=== PATIENT | female | born 2000 | race Two or more races ===

== ENCOUNTER 2024-02-17 23:33 | Emergency (ER) | payer MEDICAID, SELFPAY ==
[2024-02-17 23:33] VITALS: BMI 27.4
[2024-02-17 23:45] VITALS: BP 137/83; PULSE 67; RESP 18; TEMP 37; O2SAT 97
--- NOTE | 2024-02-18 00:13 | XR_ITS ---
Examination: Transvaginal ultrasound of the pelvis, complete Technique: Transvaginal sonographic images pelvis performed using bennett scale imaging Exam date and time: February 18, 2024 0107 hrs. Indications: Right lower abdomen and pelvic pain beginning 3 weeks ago, history ovarian cysts Findings: Uterus 8.2 x 3.0 x 4.3 cm Endometrial stripe 0.1 cm No uterine mass or intrauterine gestation Right ovary 1.7 x 2.0 x 1.6 arterial flow Left ovary ovary 2.7 x 1 6 x 2.0 cm arterial flow No fluid in the cul-de-sac Impression: Negative examination
--- NOTE | 2024-02-18 00:14 | XR_ITS ---
Examination: CT abdomen with intravenous contrast CT pelvis with intravenous contrast 2-D coronal reconstructions 2-D sagittal reconstructions Date and time of exam:February 18, 2024 0208 hrs. Comparison 11/07/2022 Indications: Right lower abdominal pain beginning 3 weeks ago with nausea vomiting. CTDI: vol (mGy) 6.20 DLP: (mGycm) 350 Technique: Multiple axial sections of the abdomen and pelvis have been obtained. 64 slice high-resolution scanner used. 3 mm axial sections have been obtained, post intravenous injection 60 cc [id number] 2-D sagittal, coronal reconstructions obtained. Low dose protocols were performed. One or more of the following dose reduction techniques were used; automated exposure control, adjustment of the mA and/or KV according to patient size, use of iterative reconstruction technique. Findings: No focal liver or splenic lesions No gallstones No pancreatic or adrenal mass No renal or ureteral calculi, no hydronephrosis Absent appendix No bowel obstruction or diverticulitis Anteverted uterus Bilateral ovarian follicular cysts Urinary bladder intact Osseous structures intact Impression: No acute process in the abdomen or pelvis
--- NOTE | 2024-02-18 00:15 | EDRME_ITS ---
Rapid Medical Screening Exam [facility] [place] Arrival date/time: 02/17/24 23:33 23F with history of appendectomy presents to ED with 3 weeks of RLQ/pelvic pain and non-bloody diarrhea every morning. Patient denies N/V, vaginal bleeding, and dysuria. Patient has also had reduced appetite. During appendectomy, surgeon did note patient had extensive pelvic/ab adhesions. Chief Complaint: Abdominal Pain Vital signs: Vital Signs Temperature 98.6 F 02/17/24 23:45 Pulse Rate 67 02/17/24 23:45 Respiratory Rate 18 02/17/24 23:45 Blood Pressure 137/83 H 02/17/24 23:45 Pulse Oximetry (%) 97 02/17/24 23:45 Oxygen Delivery Method Room Air 02/17/24 23:45
[2024-02-18 00:44] LABS: Collection Type, Urine Clean Catch; WBC,Urine 0 /hpf (0-5)
[2024-02-18 00:55] LABS: Basophils % (Auto) 0 % (0-2.5); Eosinophils # (Auto) 0.1 Thou/mm3 (0.0-0.5); Eosinophils % (Auto) 1 % (0-10); Hematocrit 35.2 % (36.0-46.0); Hemoglobin 11.3 g/dL (12.0-16.0); Immature Granulocytes % (Auto) 0 % (0-0); Immature Granulocytes Auto 0.02 Thou/mm3 (0.00-0.00); Lymphocytes # (Auto) 2.7 Thou/mm3 (1.0-4.8); Lymphocytes % (Auto) 40 % (10-50); Mean Corpuscular HGB Conc 32.1 g/dl (31.0-37.0); Mean Corpuscular Hemoglobin 24.2 pg (25.0-35.0); Mean Corpuscular Volume 75 fL (80-100); Monocytes # (Auto) 0.5 Thou/mm3 (0.0-0.8); Monocytes % (Auto) 8 % (0-12); Neutrophils # (Auto) 3.4 Thou/mm3 (1.8-7.7); Neutrophils % (Auto) 51 % (37-80); Nucleated Red Blood Cell % 0 /100 WBC (0); Platelet Count 151 Thou/mm3 (140-440); RDW Standard Deviation 41.6 fL (36.4-46.3); Red Blood Count 4.67 Miln/mm3 (4.00-5.20); White Blood Count 6.7 Thou/mm3 (3.6-11.0)
[2024-02-18 01:12] LABS: Alanine Aminotransferase 21 U/L (10-49); Albumin, Serum 4.8 gm/dL (3.5-5.0); Albumin/Globulin Ratio 1.7 (1.2-2.2); Alkaline Phosphatase 88 U/L (46-116); Anion Gap 8 (7-16); Aspartate Amino Transferase 14 U/L (0-34); BUN/Creatinine Ratio 23 Ratio (12-20); Bilirubin,Total 0.2 mg/dL (0.3-1.2); Blood Urea Nitrogen 14 mg/dL (9-23); Calcium 9.1 mg/dL (8.3-10.6); Calcium (Corrected) 9.1 mg/dL (8.5-10.1); Carbon Dioxide 25.3 mMol/L (20.0-31.0); Chloride 107 mMol/L (98-107); Creatinine (Component) 0.6 mg/dL (0.6-1.3); Estimated Creatinine Clearance 134.1 mL/min (>60); Globulin 2.8 gm/dL (2.3-3.5); Glucose 114 mg/dL (74-106); Lipase 32 U/L (12-53); Osmolality,Calculated 280 (275-295); Potassium 3.5 mMol/L (3.4-5.1); Sodium 140 mMol/L (136-145); Total Protein 7.6 gm/dL (5.7-8.2); eGFR > 60 See Note
[2024-02-18 01:23] LABS: Amphetamine/Methamp Scrn,U Negative (Negative); Bacteria,Urine Rare; Barbiturate Screen,Urine Negative (Negative); Benzodiazepines Screen,Urine Negative (Negative); Benzoylecgonine Screen, Ur Negative (Negative); Bilirubin,Urine Negative (Negative); Blood,Urine Trace (Negative); Clarity,Urine Clear (Clear/Hazy); Color,Urine Lt-Yellow (Lt Yel-Yel); Culture Indicated,Urine Not Indicated; Fentanyl Screen,Urine Negative (Negative); Glucose, Urine Negative (Negative); Ketones,Urine Negative (Negative); Leukocyte Esterase,Urine Negative (Negative); Nitrite,Urine Negative (Negative); Opiate Screen,Urine Negative (Negative); Protein,Urine Trace (Neg - Trace); RBC,Urine 5 /hpf (0-3); Specific Gravity,Urine 1.035 (1.001-1.035); Squamous Epithelial Cell,Urine 7 /hpf (0-5); THC Screen,Urine Negative (Negative); Urobilinogen,Urine Negative mg/dL (0.0-1.0)
[2024-02-18 01:24] LABS: HCG Qualitative,Urine Negative
--- NOTE | 2024-02-18 02:08 | PRELIM_ITS ---
Pelvic ultrasound (transvaginal) with doppler and wave doppler spectral analysis. February 18, 2024 a t 0107 hours Clinical history: Right pelvic pain 3 weeks. Technique: Real-time, grayscale, transvagin al pelvic ultrasound was performed using Duplex scanning including arterial inflow, venous outflow, c olor and spectral Doppler.Comparison: None available at the time of this report.Findings:The uterus i s normal in size measuring 8.2 x 3.2 x 4.3 cm. Heterogeneous uterus. The endometrium is unremarkable and measures 0.1 cm.The right ovary measures 1.7 x 2.0 x 1.6 cm and is unremarkable.The left ovary me asures 2.7 x 1.6 x 2.0 cm and is unremarkable.Both ovaries demonstrate color flow and spectral wavefo doron on Doppler evaluation.There is no adnexal mass.There is no free fluid on the submitted images.Imp ression:Heterogeneous uterus, consider correlation with MRI if clinically indicated.No evidence of ov magen torsion. Report Electronically Signed By: Davi Campos 02/18/2024 2:08:22 AM [EST]
--- NOTE | 2024-02-18 03:08 | PRELIM_ITS ---
CT scan of the abdomen and pelvis with intravenous contrast (axial sections with sagittal and coronal reformats) February 18, 2024 at 0208 hoursClinical History: RLQ/pelvic pain 3 weeks.Comparison: Ultr asound dated February 18, 2024.Findings:The lung bases are clear.The liver, gallbladder, pancreas, sp sadie, kidneys and adrenals are unremarkable.No evidence of bowel obstruction. The appendix is surgica lly absent.The uterus and ovaries are within normal limits.There is no mesenteric or retroperitoneal adenopathy.The urinary bladder is unremarkable. There is no free fluid or free air.The osseous struct ures are unremarkable.Fecal loading.Impression:No evidence of acute intra-abdominal or pelvic patholo gy.Fecal loading. Report Electronically Signed By: Davi Campos 02/18/2024 3:07:16 AM [EST]
--- NOTE | 2024-02-18 03:27 | PD.EDABDPN ---
ED Abdominal Pain RME/HPI General Chief Complaint: Abdominal Pain Stated complaint: RLQ PAIN X 3 WEEKS Arrival date/time: 02/17/24 23:33 RME / HPI RME / HPI narrative: 02/17/24 23:33 23F with history of appendectomy presents to ED with 3 weeks of RLQ/pelvic pain and non-bloody diarrhea every morning. Patient denies N/V, vaginal bleeding, and dysuria. Patient has also had reduced appetite. During appendectomy, surgeon did note patient had extensive pelvic/ab adhesions. Related Data Previous Rx's ?Medication ?Instructions ?Recorded ibuprofen 600 mg tablet 600 mg PO Q8H PRN pain #20 tabs 11/08/22 sulfamethoxazole 800 1 tab PO Q12H #14 tabs 11/08/22 mg-trimethoprim 160 mg tablet Allergies Allergy/AdvReac Type Severity Reaction Status Date / Time No Known Allergies Allergy Verified 02/17/24 23:36 Course Quality Measures none Orders Category Date Time Status CT Screening NOW Care 02/18/24 00:14 Active Insert IV NOW Care 02/18/24 00:[address] abdomen pelvis w con Stat Exams 02/18/24 00:14 Taken US transvaginal Stat Exams 02/18/24 00:13 Taken CBC Stat Lab 02/18/24 00:30 Completed CMP [Comprehensive Metabolic Panel] Stat Lab 02/18/24 00:30 Completed Drug Screen,Urine Stat Lab 02/18/24 00:30 Completed HCG Qualitative,Urine Stat Lab 02/18/24 00:30 Completed Lipase Stat Lab 02/18/24 00:30 Completed Urinalysis, C/S if Indicated Stat Lab 02/18/24 00:30 Completed Vital Signs Vital signs: Vital Signs Temperature 98.6 F 02/17/24 23:45 Pulse Rate 67 02/17/24 23:45 Respiratory Rate 18 02/17/24 23:45 Blood Pressure 137/83 H 02/17/24 23:45 Pulse Oximetry (%) 97 02/17/24 23:45 Oxygen Delivery Method Room Air 02/17/24 23:45 Abdominal Pain MDM Patient data External records reviewed:: Other (specify) Clinical information provided by:: patient Social determinants that could affect healthcare access:: none Patient has the following chronic illnesses:: none How is presenting disease/condition affected by chronic disease/condition?: no chronic disease Evaluation data The following diagnostics were reviewed and interpreted by me:: lab results Discharge Plan Prescriptions/Referrals Prescriptions/Med Rec: No Action ibuprofen 600 mg tablet 600 mg PO Q8H PRN (Reason: pain) Qty: 20 0RF sulfamethoxazole-trimethoprim 800-160 mg tablet 1 tab PO Q12H Qty: 14 0RF Referrals: Stephen Butcher FNP [Primary Care Provider] - In 1 week Patient/Caregiver Discharge Instructions Print Language: Vincentian
--- NOTE | 2024-02-18 04:55 | PD.EDABDPN ---
ED Abdominal Pain RME/HPI General Chief Complaint: Abdominal Pain Stated complaint: RLQ PAIN X 3 WEEKS Arrival date/time: 02/17/24 23:33 Limitations: no limitations RME / HPI RME / HPI narrative: 02/17/24 23:33 23F with history of appendectomy presents to ED with 3 weeks of RLQ/pelvic pain and non-bloody diarrhea every morning. Patient denies N/V, vaginal bleeding, and dysuria. Patient has also had reduced appetite. During appendectomy, surgeon did note patient had extensive pelvic/ab adhesions. ------ Dr. Lee's Main ED Evaluation: 23yo female with a previous appendectomy presents to the ED for a chief complaint of RLQ pain x 3 weeks. Patient states her pain is intermittent, but reports it significantly worsened over the last 1 day and has had diarrhea, so she came in for evaluation. She states she took ibuprofen without any alleviation of symptoms. She reports associated decreased appetite. She denies any N/V, fever, chills, vaginal bleeding or any other associated symptoms. NKA. Related Data Previous Rx's ?Medication ?Instructions ?Recorded ibuprofen 600 mg tablet 600 mg PO Q8H PRN pain #20 tabs 11/08/22 sulfamethoxazole 800 1 tab PO Q12H #14 tabs 11/08/22 mg-trimethoprim 160 mg tablet Allergies Allergy/AdvReac Type Severity Reaction Status Date / Time No Known Allergies Allergy Verified 02/17/24 23:36 Review of Systems Review of Systems Systems Reviewed: All systems reviewed, normal except as documented Past Medical History Past Medical History NEUROLOGIC: Negative Seizures CARDIAC: Negative Cardiac Disorders or Congestive Heart Failure RESPIRATORY: Negative Chronic Obstructive Pulmonary Disease (COPD) or Asthma GENITOURINARY: Negative Renal Disease ENDOCRINE: Negative Diabetes Mellitus Type 1 or Diabetes Mellitus Type 2 HEMATOLOGIC: Negative Sickle Cell Disease OTHER HISTORY: Negative Blood Transfusions, Blood Transfusion Reaction or Anesthesia Reactions Social History SMOKING STATUS: Never smoker ED Exam General Limitations: Present no limitations General appearance: Present alert and in no apparent distress Head Head exam: Present atraumatic Eye Eye exam: Present normal appearance, PERRL and EOMI ENT ENT exam: Present normal exam, normal oropharynx and mucous membranes moist Neck Neck exam: Present normal inspection, full ROM and trachea midline Chest Chest inspection: Present normal inspection and symmetric chest wall rise Respiratory Respiratory exam: Present normal lung sounds bilaterally Cardiovascular Cardiovascular exam: Present regular rate, normal rhythm and normal heart sounds Abdominal Exam Abdominal exam: Present soft and normal bowel sounds; Absent rebound Extremities Exam Extremities exam: Present normal inspection and full ROM Back Exam Back exam: Present normal inspection and full ROM; Absent CVA tenderness (R) or CVA tenderness (L) Neurological Exam Neurological exam: Present alert, oriented X3 and CN II-XII intact Psychiatric Psychiatric exam: Present normal affect and normal mood Skin Skin exam: Present warm, dry, intact and normal color Course Quality Measures none Orders Category Date Time Status CT Screening NOW Care 02/18/24 00:14 Active Insert IV NOW Care 02/18/24 00:[address] abdomen pelvis w con Stat Exams 02/18/24 00:14 Taken US transvaginal Stat Exams 02/18/24 00:13 Taken CBC Stat Lab 02/18/24 00:30 Completed CMP [Comprehensive Metabolic Panel] Stat Lab 02/18/24 00:30 Completed Drug Screen,Urine Stat Lab 02/18/24 00:30 Completed HCG Qualitative,Urine Stat Lab 02/18/24 00:30 Completed Lipase Stat Lab 02/18/24 00:30 Completed Urinalysis, C/S if Indicated Stat Lab 02/18/24 00:30 Completed Ketorolac Inj [Toradol Inj] Med 02/18/24 04:58 Discontinued 30 mg IVP X1 ONE Vital Signs Vital signs: Vital Signs Temperature 98.6 F 02/17/24 23:45 Pulse Rate 67 02/17/24 23:45 Respiratory Rate 18 02/17/24 23:45 Blood Pressure 137/83 H 02/17/24 23:45 Pulse Oximetry (%) 97 02/17/24 23:45 Oxygen Delivery Method Room Air 02/17/24 23:45 Pulse ox is 97% on room air, which is normal according to my interpretation. Abdominal Pain MDM Patient data External records reviewed:: [facility] previous records (Per chart review, patient was seen here on 11/07/22 for abdominal pain.) Clinical information provided by:: patient Social determinants that could affect healthcare access:: none Patient has the following chronic illnesses:: none How is presenting disease/condition affected by chronic disease/condition?: no chronic disease Evaluation data The following diagnostics were reviewed and interpreted by me:: lab results and radiology exam(s) Lab and/or radiology exams considered but not ordered:: none Interpretation Summary: I have personally reviewed the radiology data and agree with the radiologist's interpretation below: [facility] Preliminary Report Draft Patient: YULISA GALEAS Record#: [id number] Birthdate: 2000 Age/Sex: 23 / F Location: [facility] Attending Dr: Ordering Physician: Date of Service: Procedure(s): Accession Number(s): cc: ~ Pelvic ultrasound (transvaginal) with doppler and wave doppler spectral analysis. February 18, 2024 at 0107 hours Clinical history: Right pelvic pain 3 weeks. Technique: Real-time, grayscale, transvaginal pelvic ultrasound was performed using Duplex scanning including arterial inflow, venous outflow, color and spectral Doppler. Comparison: None available at the time of this report. Findings: The uterus is normal in size measuring 8.2 x 3.2 x 4.3 cm. Heterogeneous uterus. The endometrium is unremarkable and measures 0.1 cm. The right ovary measures 1.7 x 2.0 x 1.6 cm and is unremarkable. The left ovary measures 2.7 x 1.6 x 2.0 cm and is unremarkable. Both ovaries demonstrate color flow and spectral waveforms on Doppler evaluation. There is no adnexal mass. There is no free fluid on the submitted images. Impression: Heterogeneous uterus, consider correlation with MRI if clinically indicated. No evidence of ovarian torsion. Report Electronically Signed By: Davi Campos 02/18/2024 2:08:22 AM [EST] [facility] Preliminary Report Draft Patient: YULISA GALEAS. Record#: [id number] Birthdate: 2000 Age/Sex: 23 / F Location: [facility] Attending Dr: Ordering Physician: Date of Service: Procedure(s): Accession Number(s): cc: ~ CT scan of the abdomen and pelvis with intravenous contrast (axial sections with sagittal and coronal reformats) February 18, 2024 at 0208 hours Clinical History: RLQ/pelvic pain 3 weeks. Comparison: Ultrasound dated February 18, 2024. Findings: The lung bases are clear. The liver, gallbladder, pancreas, spleen, kidneys and adrenals are unremarkable. No evidence of bowel obstruction. The appendix is surgically absent. The uterus and ovaries are within normal limits. There is no mesenteric or retroperitoneal adenopathy. The urinary bladder is unremarkable. There is no free fluid or free air. The osseous structures are unremarkable. Fecal loading. Impression: No evidence of acute intra-abdominal or pelvic pathology. Fecal loading. Report Electronically Signed By: Davibella Campos 02/18/2024 3:07:16 AM [EST] Medications / Prescriptions Medications or Prescriptions considered but not ordered:: none Medication administrations:: Medication Administration History Discontinued Medications Ketorolac Tromethamine (Ketorolac Inj 30 Mg/Ml Vial) 30 mg IVP X1 ONE Stop: 02/18/24 04:59 see above Consultations Consultation(s) initiated? (list below): No Diagnosis Differential diagnosis abdominal pain: other (UTI, ruptured cyst, pyelonephritis, gallstones) Most likely diagnosis given after review of the tests above:: see below Admission Indicated Admission indicated?: not indicated Admission Request Was there a request for admission?: No Disposition Plan Disposition Plan: Discharge Discharge Attestation Discharge Attestation: The patient and all family members were given an opportunity to ask questions and understood the discharge instructions. Discharge instructions specifically effects, indications for sooner follow up or return to the emergency department, and the expected course of current diagnosis. Patient condition: Stable Discharge Plan Plan Patient Disposition: HOME (Self Care) Patient condition on transfer: Stable Prescriptions/Referrals Prescriptions/Med Rec: No Action ibuprofen 600 mg tablet 600 mg PO Q8H PRN (Reason: pain) Qty: 20 0RF sulfamethoxazole-trimethoprim 800-160 mg tablet 1 tab PO Q12H Qty: 14 0RF Referrals: Stephen Butcher FNP [Primary Care Provider] - In 1 week Problem List Clinical Impression: Abdominal pain in female patient Patient/Caregiver Discharge Instructions Education Materials: Measuring Your Pain Print Language: Haitian Stand Alone Forms: Layla Award Info., Patient Portal Info Letter
[2024-02-18 05:00] VITALS: BP 115/75; PULSE 67; RESP 18; TEMP 36.6; O2SAT 99
[2024-02-18] MEDS: KETOROLAC INJ 30 MG/ML VIAL IVP (05:17)
== END 2024-02-18 05:17 | disposition home or self-care (01) ==
PROVIDERS: Physician Assistant; Emergency Provider Emergency Medicine; PCP Nurse Practitioner Family
DX: R10.31 Right lower quadrant pain (principal); R10.2 Pelvic and perineal pain
CPT/HCPCS: 36415; 74177; 76830; 80053; 80307; 81001; 81025; 83690; 85025; 96374; 99285; A4649; J1885; Q9967

== ENCOUNTER → 2025-01-30 | Outpatient (CLI) | payer MEDICAID, SELFPAY ==
--- NOTE | 2025-01-30 13:30 | XR_ITS ---
Examination: Abdomen sonogram, complete Date and time of exam: January 30, 2025, 1342 hours INDICATIONS: Right lower abdominal pain beginning 1 month ago. Technique: Multiple real-time grayscale transabdominal sonographic images of the abdomen have been obtained. Findings: Normal gallbladder Normal common bile duct 0.3 cm Pancreatic head 2.1 cm Aorta not enlarged Liver 13.8 cm fatty infiltration Normal hepatopetal portal venous close Patent IVC Right kidney 10.1 cm renal cortex 1.4 cm Left kidney 9.8 cm renal cortex 2.3 cm Mild renal scar formation Spleen 11.3 cm IMPRESSION: Normal gallbladder Normal common bile duct
--- NOTE | 2025-01-30 13:30 | XR_ITS ---
Examination: Pelvic ultrasound, transabdominal, complete Technique: Transabdominal ultrasound of the pelvis performed using grayscale imaging Date and time of exam: January 30, 2025, 1333 hours INDICATIONS: Vaginal pain radiating to the pelvis 1 month FINDINGS: Uterus 7.4 cm no uterine mass or intrauterine gestation Endometrial stripe 0.4 cm Right ovary 2.2 cm arterial flow Right ovarian cyst 1.9 x 1.0 x 1.7 cm Left ovary 2.6 cm arterial flow IMPRESSION: Small right ovarian cyst 19 x 10 x 17 mm, consider 6-month follow-up pelvic sonography
== END | disposition home or self-care (01) ==
DX: N83.201 Unspecified ovarian cyst, right side (principal); R10.9 Unspecified abdominal pain
CPT/HCPCS: 76700; 76856